=== PATIENT | male | born 1970 | race Hispanic/Latino ===

== ENCOUNTER 2018-10-09 02:16 | Emergency (ER) | payer OTHER ==
[2018-10-09] MEDS ORDERED: LORAZEPAM 2 MG/ML 1 ML VIAL ONE ×2 (04:58→07:15)
[2018-10-09] MEDS ORDERED: KETAMINE HCL 100 MG/ML 5ML VIAL IJ ONE (04:58)
[2018-10-09] MEDS ORDERED: MORPHINE SULFATE 4 MG/1ML SYG ONE ×2 (07:14→07:40)
== END 2018-10-09 11:17 | disposition home or self-care (01) ==
LOC: EDH 02:16
DX: S43.084A Other dislocation of right shoulder joint, initial encounter (principal); W18.39XA Other fall on same level, initial encounter; Y93.89 Activity, other specified; Y92.89 Other specified places as the place of occurrence of the external cause; Y99.8 Other external cause status
CPT/HCPCS: 23650; 73020 ×2; 73030 ×3; 73200; 99285; J2060 ×2; J2270 ×2; J3490; 25605; 99151; 99152